=== PATIENT | female | born 1980 | race Two or more races ===

== ENCOUNTER 2024-10-11 16:25 | Emergency (ER) | payer MEDICAID, SELFPAY ==
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
[2024-10-11 16:35] VITALS: BMI 30.9
[2024-10-11] MEDS: ACETAMINOPHEN 500 MG TABLET 1000 MG PO (16:43)
[2024-10-11 17:00] VITALS: BP 137/87; PULSE 106; RESP 21; TEMP 36.4; O2SAT 98
--- NOTE | 2024-10-11 18:20 | PC.NURSE ---
ATTEMPTED TO CALL PT, NO ANSWER. MESSAGE LEFT FOR PT TO RETURN BACK TO ED IMMEDIATELY DUE TO CT FINDINGS OR GO TO ANY NEAREST HOSPITAL FOR FURTHER CARE.
--- NOTE | 2024-10-11 23:13 | PC.NURSE ---
Attempted to contact patient x2 at [phone] and [phone]. No answer, left to return in person to [facility] ER or return call to ER so provider can speak with her. Son Conchita's cell phone listed on contacts is disconnected, unable to leave .
== END 2024-10-11 17:41 | disposition left against medical advice (07) ==
LOC: SERX 17:33
PROVIDERS: Emergency Provider Emergency Medicine; PCP Family Medicine
DX: F41.9 Anxiety disorder, unspecified (principal); S69.92XA Unspecified injury of left wrist, hand and finger(s), initial encounter; S19.9XXA Unspecified injury of neck, initial encounter; R51.9 Headache, unspecified; S29.9XXA Unspecified injury of thorax, initial encounter; S39.91XA Unspecified injury of abdomen, initial encounter; V89.2XXA Person injured in unspecified motor-vehicle accident, traffic, initial encounter; Z53.29 Procedure and treatment not carried out because of patient's decision for other reasons
CPT/HCPCS: 70450; 71250; 72125; 73130; 74176; 80307; 80320; 99281; A9270; G0480

== ENCOUNTER 2024-10-12 05:01 | Emergency (ER) | payer MEDICAID, SELFPAY ==
[2024-10-12] VITALS (10 sets, daily range): BP systolic 147–165; BP diastolic 91–116; PULSE 69–102; RESP 15–18; TEMP 36.3–36.8; O2SAT 95–100; BMI 30.1
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
--- NOTE | 2024-10-12 06:29 | EKG_ITS ---
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
[2024-10-12] MEDS: SODIUM CHLORIDE 0.9% 1000 ML 1,000 ML 999 ML IV ×2 (06:42→09:12)
[2024-10-12 06:45] LABS: Lactate (Lactic Acid) 3.2 mMol/L (0.4-2.0)
[2024-10-12 06:50] LABS: Basophils % (Auto) 0 % (0-2.5); Eosinophils % (Auto) 0 % (0-10); Hematocrit 29.4 % (36.0-46.0); Hemoglobin 8.4 g/dL (12.0-16.0); Immature Granulocytes % (Auto) 1 % (0-0); Immature Granulocytes Auto 0.06 Thou/mm3 (0.00-0.00); Lymphocytes # (Auto) 0.9 Thou/mm3 (1.0-4.8); Lymphocytes % (Auto) 7 % (10-50); Mean Corpuscular HGB Conc 28.6 g/dl (31.0-37.0); Mean Corpuscular Hemoglobin 19.4 pg (25.0-35.0); Mean Corpuscular Volume 68 fL (80-100); Monocytes # (Auto) 0.7 Thou/mm3 (0.0-0.8); Monocytes % (Auto) 5 % (0-12); Neutrophils # (Auto) 11.3 Thou/mm3 (1.8-7.7); Neutrophils % (Auto) 87 % (37-80); Nucleated Red Blood Cell % 0 /100 WBC (0); Platelet Count 571 Thou/mm3 (140-440); RDW Standard Deviation 44.9 fL (36.4-46.3); Red Blood Count 4.33 Miln/mm3 (4.00-5.20)
[2024-10-12 07:02] LABS: Prothrombin Time 11.4 Seconds (9.0-12.2)
[2024-10-12 07:09] LABS: Alanine Aminotransferase 561 U/L (10-49); Albumin, Serum 4.5 gm/dL (3.5-5.0); Albumin/Globulin Ratio 1.3 (1.2-2.2); Alcohol, Blood Medical < 3.0 mg/dL (0-10.0); Alkaline Phosphatase 97 U/L (46-116); Anion Gap 7 (7-16); Aspartate Amino Transferase 480 U/L (0-34); BUN/Creatinine Ratio 21 Ratio (12-20); Bilirubin,Total 0.6 mg/dL (0.3-1.2); Blood Urea Nitrogen 19 mg/dL (9-23); Calcium 9.5 mg/dL (8.3-10.6); Calcium (Corrected) 9.5 mg/dL (8.5-10.1); Carbon Dioxide 26.4 mMol/L (20.0-31.0); Chloride 100 mMol/L (98-107); Creatinine (Component) 0.9 mg/dL (0.6-1.3); Estimated Creatinine Clearance 79.2 mL/min (>60); Globulin 3.6 gm/dL (2.3-3.5); Glucose 151 mg/dL (74-106); Lipase 49 U/L (12-53); Osmolality,Calculated 271 (275-295); Potassium 3.7 mMol/L (3.4-5.1); Sodium 133 mMol/L (136-145); Total Protein 8.1 gm/dL (5.7-8.2); eGFR > 60 See Note
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
[2024-10-12] MEDS: PANTOPRAZOLE INJ 40 MG VIAL IVP (08:12)
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
[2024-10-12 09:42] LABS: Reflex Lactate? Y
[2024-10-12 09:54] LABS: Lactic Acid, 3 HR 1.5 mMol/L (0.4-2.0)
[2024-10-12 11:24] LABS: Collection Type, Urine Clean Catch
[2024-10-12] MEDS: ONDANSETRON INJ 2 MG/ML INJ 2 ML 4 MG IV (11:38)
[2024-10-12] MEDS: MORPHINE SULF INJ 10 MG/ML VIAL 4 MG IVP ×2 (11:40→14:19)
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
[2024-10-12 12:04] LABS: Amphetamine/Methamp Scrn,U Positive (Negative); Barbiturate Screen,Urine Negative (Negative); Benzodiazepines Screen,Urine Negative (Negative); Benzoylecgonine Screen, Ur Negative (Negative); Fentanyl Screen,Urine Negative (Negative); Opiate Screen,Urine Negative (Negative); THC Screen,Urine Positive (Negative)
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
--- NOTE | 2024-10-12 14:35 | PC.NURSE ---
1330 PATIENT TO BE TRANSFERRED TO [facility] ER. REPORT CALLED TO BRAIN RN AT [facility]. PATIENT AND SON INFORMED OF TRANSFER AND WHY.
[2024-10-12 14:39] LABS: RBC,Urine 1279 /hpf (0-3); Squamous Epithelial Cell,Urine 5 /hpf (0-5); WBC,Urine 139 /hpf (0-5)
[2024-10-12 14:47] LABS: Bilirubin,Urine Negative (Negative); Blood,Urine 3+ (Negative); Clarity,Urine Cloudy (Clear/Hazy); Color,Urine Red (Lt Yel-Yel); Glucose, Urine Negative (Negative); Ketones,Urine Negative (Negative); Leukocyte Esterase,Urine Trace (Negative); Nitrite,Urine Positive (Negative); Protein,Urine 2+ (Neg - Trace)
[2024-10-12 14:48] LABS: Culture Indicated,Urine Yes
== END 2024-10-12 14:25 | disposition short-term general hospital (02) ==
PROVIDERS: Emergency Provider Emergency Medicine; PCP Family Medicine
DX: S36.113A Laceration of liver, unspecified degree, initial encounter (principal); S22.5XXA Flail chest, initial encounter for closed fracture; S32.028A Other fracture of second lumbar vertebra, initial encounter for closed fracture; S32.038A Other fracture of third lumbar vertebra, initial encounter for closed fracture; S32.058A Other fracture of fifth lumbar vertebra, initial encounter for closed fracture; I27.21 Secondary pulmonary arterial hypertension; S89.92XA Unspecified injury of left lower leg, initial encounter; S39.93XA Unspecified injury of pelvis, initial encounter; V89.2XXA Person injured in unspecified motor-vehicle accident, traffic, initial encounter; X37.3XXA Dust storm, initial encounter; Y92.413 State road as the place of occurrence of the external cause; Z75.1 Person awaiting admission to adequate facility elsewhere
CPT/HCPCS: 36415; 71045; 71260; 72170; 73590; 74177; 80053; 80307; 80320; 81001; 83605; 83690; 85025; 85610; 86850; 86900; 86901; 87077; 87086; 87186; 93005; 96361; 96374; 96375; 99291; A4649; J2270; J2405; J2470; J7030; Q9967; G0480